=== PATIENT | male | born 1970 | race African-American/Black ===

== ENCOUNTER 2017-12-18 10:18 | Emergency (ER) | payer MEDICAID ==
[~2017-12-18] VITALS: Ht 162.6 cm; Wt 68.0 kg
[2017-12-18 10:20] VITALS: BP 97/70
== END 2017-12-18 12:45 | disposition home or self-care (01) ==
LOC: ER 10:34
DX: T83.098A Other mechanical complication of other urinary catheter, initial encounter (principal); I11.0 Hypertensive heart disease with heart failure; I50.9 Heart failure, unspecified; J45.909 Unspecified asthma, uncomplicated; Z88.0 Allergy status to penicillin; Y84.6 Urinary catheterization as the cause of abnormal reaction of the patient, or of later complication, without mention of misadventure at the time of the procedure
CPT/HCPCS: 51702; 99284; A4315